=== PATIENT | male | born 1960 | race Caucasian/White ===

== ENCOUNTER 2021-10-20 18:16 | Emergency (ER) | payer OTHER ==
[~2021-10-20] VITALS: Ht 188 cm; Wt 158.8 kg
[2021-10-20] MEDS ORDERED: SIMVASTATIN80 MG PO (18:30)
[2021-10-20] MEDS ORDERED: OMEPRAZOLE 20 M20 M1 PO (18:36)
[2021-10-20] MEDS ORDERED: COZAAR 25 MG TA25 M1 PO (18:37)
[2021-10-20] MEDS ORDERED: HYDROCHLOROTHIA25 M1 PO (18:37)
[2021-10-20] MEDS ORDERED: CATAPRES0.2 MG PO (18:37)
[2021-10-20] MEDS ORDERED: HYDRALAZINE 5050 MG PO (18:38)
[2021-10-20] MEDS ORDERED: INDERAL LA120 M1 PO (18:38)
[2021-10-20] MEDS ORDERED: IBU800 MG PO (18:39)
[2021-10-20 19:17] LABS: ABSOLUTE EOSINOPHILS 0.2 thou/uL (0.0-0.7); ABSOLUTE LYMPHOCYTES 1.6 thou/uL (0.8-5.3); ABSOLUTE MONOCYTES 0.5 thou/uL (0.0-1.2); ABSOLUTE NEUTROPHILS 2.9 thou/uL (1.6-8.1); BASOPHILS 0.6 %; HEMATOCRIT 38.3 % (42.0-52.0); HEMOGLOBIN 12.6 gm/dL (14.0-18.0); LYMPHOCYTES 30.8 %; MCH 29.8 pg (26.0-34.0); MCV 90.2 fL (80.0-100.0); MONOCYTES 8.9 %; NUCLEATED RBCS 0 /100WBC; PLATELET COUNT* 250 thou/uL (150-400); POLYS 55.7 %; RBC 4.25 mil/uL (4.50-6.00); RDW-CV 15.3 % (10.5-14.5); WBC 5.3 thou/uL (4.0-11.0)
[2021-10-20 19:25] LABS: CALCIUM 8.9 mg/dL (8.5-10.1); CREATININE 1.6 mg/dL (0.6-1.3); POTASSIUM 3.6 mmol/L (3.5-5.1)
[2021-10-20 19:28] LABS: PROTIME 10.2 Seconds (9.20-11.50)
[2021-10-20 19:30] LABS: ALBUMIN 3.7 g/dL (3.4-5.0); TOTAL BILIRUBIN 0.5 mg/dL (<0.1-1.0); TOTAL PROTEIN 7.4 g/dL (6.4-8.2)
[2021-10-20] MEDS ORDERED: ACYCLOVIR 400400 MG PO (20:50)
[2021-10-20] MEDS ORDERED: MEDROLDOSEPACK PO (20:50)
[2021-10-20 22:44] VITALS: BP 175/95
--- NOTE | 2021-10-21 09:10 | EKG ---
[place] [address] ELECTROCARDIOGRAM REPORT Name: ABAD JANE Room: [facility]#: [id number] Admission: 10/20/21 Attend Phys: Discharge: 10/20/21 Date of : 58 Date of Service: 10/20/211919 Report #: [id number] THIS REPORT FOR: //name// [facility] ED Test Date: 2021-10-20 Test Time: 19:20:52 Pat Name: ABAD JANE Department: Room: Gender: Application Support Analyst: [facility] : 1960 Requested By: Mj Rutherford Order Number: [id number] MD: Andres Mccracken Measurements Intervals [place] Rate: 56 P: 25 UT: 210 QRS: 18 QRSD: 99 T: 158 QT: 423 QTc: 409 Interpretive Statements Sinus rhythm Low voltage, precordial leads Anteroseptal infarct, old possible Abnormal T, consider ischemia, lateral leads Baseline wander in lead(s) V5,V6 No previous ECG available for comparison Electronically Signed On 10-21-2021 9:09:49 INFORMATION OPERATOR by Andres Mccracken [email or web address] <ELECTRONICALLY SIGNED> By: Andres Mccracken MD, [facility] 10/21/21908 19 19 Andres Mccracken MD, [facility] /EPI
== END 2021-10-20 22:47 | disposition home or self-care (01) ==
LOC: M.ERS 18:16
PROVIDERS: Emergency Medicine
DX: G51.0 Bell's palsy (principal); I10 Essential (primary) hypertension; E78.5 Hyperlipidemia, unspecified; Z79.899 Other long term (current) drug therapy; E66.9 Obesity, unspecified; Z68.41 Body mass index [BMI] 40.0-44.9, adult